=== PATIENT | female | born 1955 | race Hispanic/Latino ===

== ENCOUNTER 2016-10-27 16:54 | Emergency (ER) | payer SELFPAY ==
[2016-10-27 17:50] LABS: Mean Corpuscular HGB Conc 27 % (30-34); Platelet Count 265 K/mm3 (140-440); Red Blood Count 3.18 M/mm3 (3.65-5.03); Red Cell Distribution Width 17.1 % (13.2-15.2); White Blood Count 5.8 K/mm3 (4.5-11.0)
[2016-10-27 17:53] LABS: Hemoglobin 5.4 gm/dl (10.1-14.3); Mean Corpuscular Hemoglobin 17 pg (28-32); Mean Corpuscular Volume 63 fl (79-97)
[2016-10-27 17:57] LABS: Partial Thromboplastin Time 28.6 Sec. (24.2-36.6)
[2016-10-27 18:06] LABS: Alanine Aminotransferase 9 units/L (7-56); Albumin 4.3 g/dL (3.9-5); Albumin/Globulin Ratio 1.7 %; Alkaline Phosphatase 60 units/L (35-129); Anion Gap 22 mmol/L; BUN/Creatinine Ratio 22.72; Blood Urea Nitrogen 25 mg/dL (7-17); Calcium 8.9 mg/dL (8.4-10.2); Carbon Dioxide 21 mmol/L (22-30); Chloride 102.7 mmol/L (98-107); Glucose 109 mg/dL (65-100); Potassium 4.8 mmol/L (3.6-5.0); Sodium 141 mmol/L (137-145); Total Protein 6.9 g/dL (6.3-8.2)
[2016-10-27 18:13] LABS: Bilirubin,Direct < 0.2 mg/dL (0-0.2)
[2016-10-27 18:48] LABS: Basophils % (Manual) 0 % (0.0-1.8); Blastocytes % (Manual) 0 %
[2016-10-27 18:49] LABS: Hypochromasia 3+; Microcytosis 2+; Polychromasia Few
[2016-10-27 18:50] LABS: Diff Status Complete; Elliptocytes 1+; Tear Drop Cells 1+
[2016-10-27] MEDS ORDERED: NACL 0.9% 500 ML 500 ML IV ONE (20:26)
--- NOTE | 2016-10-27 22:22 | Emergency Department Report ---
ED General Adult HPI - General Chief complaint: Medical Clearance Stated complaint: LOW HEMAGLOBIN Time Seen by Provider: 10/27/16 20:12 Source: patient Mode of arrival: Ambulatory Limitations: No Limitations - History of Present Illness Initial comments: Patient is a 61 -year-old female past medical history of anemia and high blood pressure who presents with low hemoglobin. Patient got some routine blood work and her PCP and was told that she needed to calm to the emergency department for medical clearance. Patient denies any fatigue or pain. She denies any bloody stools or melena. She states that she had a colonoscopy earlier on this ear which showed no signs of lower gastrointestinal bleeding. Patient's hemoglobin was 5.5. Severity scale (0 -10): 0 - Related Data Home Medications Medication Instructions Recorded Confirmed Last Taken Pantoprazole [Protonix TAB] 20 mg PO QDAY 10/27/16 10/27/16 Unknown Allergies Allergy/AdvReac Type Severity Reaction Status Date / Time No Known Allergies Allergy Unverified 10/27/16 17:11 ED Review of Systems ROS: Stated complaint: LOW HEMAGLOBIN Other details as noted in HPI Constitutional: denies: chills, fever Eyes: denies: eye pain, eye discharge, vision change ENT: denies: ear pain, throat pain Respiratory: denies: cough, shortness of breath, wheezing Cardiovascular: denies: chest pain, palpitations Endocrine: no symptoms reported Gastrointestinal: denies: abdominal pain, nausea, diarrhea Genitourinary: denies: urgency, dysuria, discharge Musculoskeletal: denies: back pain, joint swelling, arthralgia Skin: other (pale). denies: rash, lesions Neurological: denies: headache, weakness, paresthesias Psychiatric: denies: anxiety, depression Hematological/Lymphatic: denies: easy bleeding, easy bruising ED Past Medical Hx - Past Medical History Previous Medical History?: Yes Hx Hypertension: Yes Additional medical history: childhood anemia - Surgical History Past Surgical History?: Yes Additional Surgical History: 1988 - Social History Smoking Status: Current Some Day Smoker Substance Use Type: None - Medications Home Medications: Home Medications Medication Instructions Recorded Confirmed Last Taken Type Pantoprazole [Protonix TAB] 20 mg PO QDAY 10/27/16 10/27/16 Unknown History ED Physical Exam - General Limitations: No Limitations General appearance: alert, in no apparent distress - Head Head exam: Present: atraumatic, normocephalic - Eye Eye exam: Present: normal appearance - ENT ENT exam: Present: mucous membranes moist - Neck Neck exam: Present: normal inspection - Respiratory Respiratory exam: Present: normal lung sounds bilaterally. Absent: respiratory distress - Cardiovascular Cardiovascular Exam: Present: regular rate, normal rhythm. Absent: systolic murmur, diastolic murmur, rubs, gallop - GI/Abdominal GI/Abdominal exam: Present: soft, normal bowel sounds - Rectal Rectal exam: Present: heme (-) stool, hemorrhoids. Absent: heme (+) stool, black stool, bloody stool - Extremities Exam Extremities exam: Present: normal inspection, full ROM - Back Exam Back exam: Present: normal inspection, full ROM - Neurological Exam Neurological exam: Present: alert, oriented X3, CN II-XII intact - Psychiatric Psychiatric exam: Present: normal affect, normal mood - Skin Skin exam: Present: warm, dry ED Course Vital Signs 10/27/16 10/27/16 10/27/16 17:11 20:58 21:24 Temperature 98.2 F 98.2 F Pulse Rate 120 H 93 H Respiratory 16 13 16 Rate Blood Pressure 165/89 Blood Pressure 138/63 [Left] O2 Sat by Pulse 102 H 100 100 Oximetry 10/27/16 10/27/16 10/27/16 22:00 22:15 22:40 Temperature 98.8 F 98.5 F 98.6 F Pulse Rate 88 86 92 H Respiratory 16 14 14 Rate Blood Pressure 138/65 145/72 141/68 Blood Pressure [Left] O2 Sat by Pulse 99 100 100 Oximetry 10/27/16 10/27/16 10/28/16 22:55 23:25 00:49 Temperature 98.4 F 98.2 F Pulse Rate 93 H 93 H 90 Respiratory 14 14 16 Rate Blood Pressure 141/71 139/83 172/64 Blood Pressure [Left] O2 Sat by Pulse 100 100 98 Oximetry - Reevaluation(s) Reevaluation #1: 10/27/16 22:35 Reevaluated patient patient is currently getting blood she's has no complaints other than being cold. She is on her first unit now will continue to reassess. Reevaluation #2: 10/28/16 00:26 Patient has finished her transfusion of blood will get a repeat CBC. Reevaluation #3: 10/28/16 01:44 Patient is is asymptomatic discussed the patient to follow up with PCP. ED Medical Decision Making - Lab Data Result diagrams: 10/28/16 00:26 10/27/16 17:29 Laboratory Results - last 24 hr 10/27/16 10/27/16 10/27/16 17:29 17:29 17:29 WBC 5.8 RBC 3.18 L Hgb 5.4 L* Hct 20.0 L MCV 63 L MCH 17 L MCHC 27 L RDW 17.1 H Plt Count 265 [place] % (Auto) Secretary Receptionist Eos % (Auto) Secretary Receptionist [place] # Secretary Receptionist Eos # Secretary Receptionist Baso # Secretary Receptionist Add Manual Diff Complete Total Counted 100 Seg Neutrophils % Secretary Receptionist Seg Neuts % (Manual) 74.0 H Band Neutrophils % 0 Lymphocytes % (Manual) 18.0 Reactive Lymphs % (Man) 0 Monocytes % (Manual) 5.0 Eosinophils % (Manual) 3.0 Basophils % (Manual) 0 Metamyelocytes % 0 Myelocytes % 0 Promyelocytes % 0 Blast Cells % 0 Nucleated RBC % Not Reportable Seg Neutrophils # Secretary Receptionist Seg Neutrophils # Man 4.3 Band Neutrophils # 0.0 Lymphocytes # (Manual) 1.0 L Abs React Lymphs (Man) 0.0 Monocytes # (Manual) 0.3 Eosinophils # (Manual) 0.2 Basophils # (Manual) 0.0 Metamyelocytes # 0.0 Myelocytes # 0.0 Promyelocytes # 0.0 Blast Cells # 0.0 WBC Morphology Not Reportable Hypersegmented Neuts Not Reportable Hyposegmented Neuts Not Reportable Hypogranular Neuts Not Reportable Smudge Cells Not Reportable Toxic Granulation Not Reportable Toxic Vacuolation Not Reportable Dohle Bodies Not Reportable Pelger-Huet Anomaly Not Reportable Suzie Rods Not Reportable Platelet Estimate Appears normal Clumped Platelets Not Reportable Plt Clumps, EDTA Not Reportable Large Platelets Not Reportable Giant Platelets Not Reportable Platelet Satelliting Not Reportable Plt Morphology Comment Not Reportable RBC Morphology Not Reportable Dimorphic RBCs Not Reportable Polychromasia Few Hypochromasia 3+ Poikilocytosis Not Reportable Anisocytosis Not Reportable Microcytosis 2+ Macrocytosis Not Reportable Spherocytes Not Reportable Pappenheimer Bodies Not Reportable Sickle Cells Not Reportable Target Cells Not Reportable Tear Drop Cells 1+ Ovalocytes Not Reportable Helmet Cells Not Reportable [place] Bodies Not Reportable [place] Rings Not Reportable Unruly Cells Not Reportable Bite Cells Not Reportable Crenated Cell Not Reportable Elliptocytes 1+ Acanthocytes (Spur) Not Reportable Rouleaux Not Reportable Hemoglobin C Crystals Not Reportable Schistocytes Not Reportable Malaria parasites Not Reportable Oh Bodies Not Reportable Hem Pathologist Commnt No PT 13.7 INR 1.00 APTT 28.6 Sodium 141 Potassium 4.8 Chloride 102.7 Carbon Dioxide 21 L Anion Gap 22 BUN 25 H Creatinine 1.1 Estimated GFR 50 BUN/Creatinine Ratio 22.72 Glucose 109 H Calcium 8.9 Total Bilirubin 0.20 Direct Bilirubin < 0.2 Indirect Bilirubin 0.0 AST 10 ALT 9 Alkaline Phosphatase 60 Total Protein 6.9 Albumin 4.3 Albumin/Globulin Ratio 1.7 Blood Type Antibody Screen JIHAN Antibody Screen Crossmatch 10/27/16 10/28/16 17:36 00:26 WBC 6.5 RBC 4.05 Hgb 8.5 L D Hct 28.8 L D MCV 71 L MCH 21 L MCHC 30 RDW 24.6 H Plt Count 240 [place] % (Auto) Eos % (Auto) [place] # Eos # Baso # Add Manual Diff Total Counted Seg Neutrophils % Seg Neuts % (Manual) Band Neutrophils % Lymphocytes % (Manual) Reactive Lymphs % (Man) Monocytes % (Manual) Eosinophils % (Manual) Basophils % (Manual) Metamyelocytes % Myelocytes % Promyelocytes % Blast Cells % Nucleated RBC % Seg Neutrophils # Seg Neutrophils # Man Band Neutrophils # Lymphocytes # (Manual) Abs React Lymphs (Man) Monocytes # (Manual) Eosinophils # (Manual) Basophils # (Manual) Metamyelocytes # Myelocytes # Promyelocytes # Blast Cells # WBC Morphology Hypersegmented Neuts Hyposegmented Neuts Hypogranular Neuts Smudge Cells Toxic Granulation Toxic Vacuolation Dohle Bodies Pelger-Huet Anomaly Suzie Rods Platelet Estimate Clumped Platelets Plt Clumps, EDTA Large Platelets Giant Platelets Platelet Satelliting Plt Morphology Comment RBC Morphology Dimorphic RBCs Polychromasia Hypochromasia Poikilocytosis Anisocytosis Microcytosis Macrocytosis Spherocytes Pappenheimer Bodies Sickle Cells Target Cells Tear Drop Cells Ovalocytes Helmet Cells Goldman-[place] Bodies [place] Rings [place] Cells Bite Cells Crenated Cell Elliptocytes Acanthocytes (Spur) Rouleaux Hemoglobin C Crystals Schistocytes Malaria parasites Oh Bodies Hem Pathologist Commnt PT INR APTT Sodium Potassium Chloride Carbon Dioxide Anion Gap BUN Creatinine Estimated GFR BUN/Creatinine Ratio Glucose Calcium Total Bilirubin Direct Bilirubin Indirect Bilirubin AST ALT Alkaline Phosphatase Total Protein Albumin Albumin/Globulin Ratio Blood Type O POSITIVE Antibody Screen TNR JIHAN Antibody Screen Negative Crossmatch See Detail - Medical Decision Making Chief medical diagnosis: Anemia Differential diagnosis GI bleed, metabolic abnormality, dehydration, acute kidney injury We'll get CBC, CMP, type and screen, transfuse, rectal exam. Due to patient being asymptomatic but still having life-threatening anemia will have patient monitored. Patient has been monitored for 4 hours no signs of active bleeding patient is not short of breath no chest pain and since patient has no GI bleed she can follow-up with her PCP. Patient no longer has a life-threatening critical value discussed plan with patient and she agrees with discharge. Critical Care Time: Yes Critical care time in (mins) excluding proc time.: 35 Critical care attestation.: If time is entered above; I have spent that time in minutes in the direct care of this critically ill patient, excluding procedure time. Critical Care Time: Time spent evaluating patient and reassessment 30 minutes Time spent going over diagnostic tests 5 minutes Time spent: Overall medical records 0 minutes ED Disposition Clinical Impression: Low hemoglobin Anemia Qualifiers: Anemia type: unspecified type Qualified Code(s): D64.9 - Anemia, unspecified Disposition: DC-01 TO HOME OR SELFCARE Is pt being admited?: No Does the pt Need Aspirin: No Condition: Stable Instructions: Anemia (ED), Iron Rich Diet (ED) Referrals: PRIMARY CARE, [Primary Care Provider] - 3-5 Days Time of Disposition: 01:44
[2016-10-28 00:43] LABS: Mean Corpuscular HGB Conc 30 % (30-34); Mean Corpuscular Volume 71 fl (79-97); Platelet Count 240 K/mm3 (140-440); Red Blood Count 4.05 M/mm3 (3.65-5.03); White Blood Count 6.5 K/mm3 (4.5-11.0)
[2016-10-28 00:58] LABS: Hematocrit 28.8 % (30.3-42.9); Hemoglobin 8.5 gm/dl (10.1-14.3); Mean Corpuscular Hemoglobin 21 pg (28-32); Red Cell Distribution Width 24.6 % (13.2-15.2)
[2016-10-28 01:01] VITALS: BP 172/64
== END 2016-10-28 02:01 | disposition home or self-care (01) ==
LOC: ED 16:54
DX: D64.9 Anemia, unspecified (principal); I10 Essential (primary) hypertension; F17.200 Nicotine dependence, unspecified, uncomplicated
CPT/HCPCS: 36415; 36430; 80053; 80074; 85007; 85025; 85027; 85610; 85730; 86850; 86900; 86901; 86920; 96360; 99291; J7040; P9016

== ENCOUNTER 2020-04-02 13:40 | Emergency (ER) | payer SELFPAY ==
[2020-04-02 13:58] VITALS: BP 178/87
--- NOTE | 2020-04-02 14:07 | Emergency Department Report ---
Blank Doc - Documentation Documentation: 64-year-old female presents with left flank pain. Patient is tachy at 115. This initial assessment/diagnostic orders/clinical plan/treatment(s) is/are subject to change based on patient's health status, clinical progression and re- assessment by fellow clinical providers in the ED. Further treatment and workup at subsequent clinical providers discretion. Patient/guardians urged not to elope from the ED as their condition may be serious if not clinically assessed and managed. Initial orders include: 1- Patient sent to [facility] for further evaluation and treatment 2- labs 3- UA 4- EKG
[2020-04-02 15:01] LABS: Alanine Aminotransferase 6 units/L (7-56); Albumin 4.1 g/dL (3.9-5); BUN/Creatinine Ratio 13; Blood Urea Nitrogen 15 mg/dL (7-17); Calcium 8.5 mg/dL (8.4-10.2); Hemolysis Index 1
[2020-04-02 15:16] LABS: Mean Corpuscular HGB Conc 27 % (30-34); Platelet Count 232 K/mm3 (140-440); Red Cell Distribution Width 18.8 % (13.2-15.2)
[2020-04-02 15:17] LABS: Hematocrit 21.2 % (30.3-42.9); Mean Corpuscular Volume 68 fl (79-97)
[2020-04-02 15:18] LABS: Hemoglobin 5.6 gm/dl (10.1-14.3)
[2020-04-02 15:23] LABS: Bilirubin,Urine NEG (Negative); Blood,Urine NEG (Negative); Color,Urine Yellow (Yellow); Hyaline Casts,Urine 5 /LPF; Mucus,Urine FEW /HPF; Protein,Urine <15 mg/dL mg/dL (Negative); Urobilinogen,Urine < 2.0 mg/dL (<2.0)
[2020-04-02] MEDS ORDERED: ACETAMINOPHEN 325 MG TAB PO ONE (17:58)
--- NOTE | 2020-04-02 18:01 | Emergency Department Report ---
ED Back Pain/Injury HPI - General Chief Complaint: Abdominal Pain Stated Complaint: LOW BACK/KIDNEY PAIN Time Seen by Provider: 04/02/20 14:00 Source: patient, old records reviewed Limitations: No Limitations - History of Present Illness Initial Comments: 64-year-old female with a past medical history of hypertension, peptic ulcer disease diagnosed by CT scan 12 years ago currently on Prilosec, and "childhood anemia" presents to the hospital with complaints of left flank pain x5 days. Pain she describes her is worse with movement, sitting, walking, and palpation. No alleviating factors reported. She denies nausea, vomiting, fever, increased urinary frequency, dysuria, hematuria, melena, hematochezia, or hematemesis. She denies chest pain, shortness of breath, or lightheadedness. Patient takes Goody powders 3-4 times a week for intermittent headaches. As per previous medical record review in 2017 patient had a blood transfusion for anemia with a normal colonoscopy in 2017. She denies known history of iron deficiency anemia does not currently take iron tablet - Related Data Home Medications Medication Instructions Recorded Confirmed Last Taken Pantoprazole [Protonix TAB] 20 mg PO QDAY 10/27/16 10/27/16 Unknown Previous Rx's Medication Instructions Recorded Last Taken Type Docusate Sodium [Colace] 100 mg PO BID PRN #20 capsule 04/02/20 Unknown Rx Ferrous Sulfate [Ferrous Sulfate 324 mg PO DAILY #30 tablet. 04/02/20 Unknown Rx 324 MG] Allergies Allergy/AdvReac Type Severity Reaction Status Date / Time codeine Allergy Nausea Verified 04/02/20 13:55 ED Review of Systems ROS: Stated complaint: LOW BACK/KIDNEY PAIN Other details as noted in HPI Comment: All other systems reviewed and negative ED Past Medical Hx - Past Medical History Hx Hypertension: Yes Additional medical history: childhood anemia - Surgical History Additional Surgical History: 1989 - Social History Smoking Status: Current Some Day Smoker Substance Use Type: None - Medications Home Medications: Home Medications Medication Instructions Recorded Confirmed Last Taken Type Pantoprazole [Protonix TAB] 20 mg PO QDAY 10/27/16 10/27/16 Unknown History Docusate Sodium [Colace] 100 mg PO BID PRN #20 capsule 04/02/20 Unknown Rx Ferrous Sulfate [Ferrous Sulfate 324 mg PO DAILY #30 tablet. 04/02/20 Unknown Rx 324 MG] ED Physical Exam - General Limitations: No Limitations - Other Other exam information: General: No acute distress Head: Atraumatic Eyes: normal appearance ENT: Moist mucous membranes Neck: Normal appearance, no midline tenderness Chest: Clear to auscultation bilaterally CV: Regular rate and rhythm Abdomen: Soft, normal bowel sounds, nontender, nondistended, no rebound or guarding Rectal exam: Refused Back: Normal inspection, left upper flank tenderness Extremity: Normal inspection, full range of motion Neuro: Alert O x 3, no facial asymmetry, speech clear, no gross motor sensory deficit Psych: Appropriate behavior Skin: No rash ED Course Vital Signs 04/02/20 13:57 Temperature 97.4 F L Pulse Rate 114 H Respiratory 20 Rate Blood Pressure 178/87 O2 Sat by Pulse 100 Oximetry ED Medical Decision Making - Lab Data Result diagrams: 04/02/20 14:20 04/02/20 14:20 Lab Results 04/02/20 04/02/20 04/02/20 Range/Units 14:20 14:20 14:54 WBC 6.2 (4.5-11.0) K/mm3 RBC 3.10 L (3.65-5.03) M/mm3 Hgb 5.6 L* (10.1-14.3) gm/dl Hct 21.2 L (30.3-42.9) % MCV 68 L (79-97) fl MCH 18 L (28-32) pg MCHC 27 L (30-34) % RDW 18.8 H (13.2-15.2) % Plt Count 232 (140-440) K/mm3 Sodium 139 (137-145) mmol/L Potassium 4.2 (3.6-5.0) mmol/L Chloride 107.9 H (98-107) mmol/L Carbon Dioxide 20 L (22-30) mmol/L Anion Gap 15 mmol/L BUN 15 (7-17) mg/dL Creatinine 1.2 (0.6-1.2) mg/dL Estimated GFR 45 ml/min BUN/Creatinine Ratio 13 % Glucose 101 H (65-100) mg/dL Calcium 8.5 (8.4-10.2) mg/dL Total Bilirubin < 0.20 (0.1-1.2) mg/dL AST 12 (5-40) units/L ALT 6 L (7-56) units/L Alkaline Phosphatase 90 (35-129) units/L Troponin T < 0.010 (0.00-0.029) ng/mL Total Protein 7.0 (6.3-8.2) g/dL Albumin 4.1 (3.9-5) g/dL Albumin/Globulin Ratio 1.4 % Urine Color Yellow (Yellow) Urine Turbidity Clear (Clear) Urine pH 5.0 (5.0-7.0) Ur Specific [place] 1.015 (1.003-1.030) Urine Protein <15 mg/dl (Negative) mg/dL Urine Glucose (UA) Neg (Negative) mg/dL Urine Ketones Neg (Negative) mg/dL Urine Blood Neg (Negative) Urine Nitrite Neg (Negative) Urine Bilirubin Neg (Negative) Urine Urobilinogen < 2.0 (<2.0) mg/dL Ur Leukocyte Esterase Neg (Negative) Urine WBC (Auto) 2.0 (0.0-6.0) /HPF Urine RBC (Auto) 1.0 (0.0-6.0) /HPF U Epithel Cells (Auto) < 1.0 (0-13.0) /HPF Hyaline Casts 5 /LPF Urine Mucus Few /HPF - EKG Data -: EKG Interpreted by Mi EKG shows normal: sinus rhythm, ST-T waves (lvh ) Rate: tachycardia (108) - Medical Decision Making 64-year-old female history of peptic ulcer disease, hypertension, and anemia presents to the hospital with complaints of nontraumatic left flank pain without associated symptoms. Incidental finding of anemia which patient denies current anemia symptoms but is noted to be tachycardic. Patient states "her heart rate is always fast". MCV is low suggesting iron deficiency component to anemia. Patient is interesting in keeping her ER bill/cost down and therefore has re fused rectal examination to rule out bleed, refused blood transfusion, and refused CT abdomen and pelvis. I informed patient that I cannot rule out GI bleed without rectal exam especially given her history of peptic ulcer disease and anemia requiring transfusion. I explained that she is at risk for significant morbidity and mortality from severe anemia and occult GI bleed. Patient understands still denies treatment. She was advised to discontinue Goody powders and other NSAIDs due to risk of GI bleed. She was advised to continue Prilosec. I will add iron tablets and Colace to help with anemia. Patient encouraged to return to the ER if she develops symptomatic anemia which was discussed Tylenol provided for pain in the ED Critical Care Time: No Critical care attestation.: If time is entered above; I have spent that time in minutes in the direct care of this critically ill patient, excluding procedure time. ED Disposition Clinical Impression: Anemia, Left flank pain Disposition: DC- LEFT AGAINST MED ADVICE Is pt being admited?: No Does the pt Need Aspirin: No Condition: Stable Instructions: Abdominal Pain (ED), Flank Pain, Adult, [id number], Preventing Iron Deficiency Anemia, Adult Additional Instructions: Take the medication as prescribed. Follow-up with your doctor or doctor/clinic provided. Return if symptoms worsen as indicated by your discharge instructions. Please return if you develop lightheadedness, shortness of breath, fatigue, vomit blood, or see blood in your stool as discussed which could appear red or black. Please note that iron tablets may also cause black stool. Please understand that blood transfusion was recommended because your hemoglobin is extremely low. Also I am unable to do a CAT scan at this time for further evaluation of the left leg pain. If your hemoglobin continues to decresse you will be high risk for worsening shortness of breath, lightheadedness passing out, heart attack, and . Please avoid NSAIDs, aspirin, Goody powders, ibuprofen, Motrin, or Aleve because this may contribute to bleeding ulcers. Continue your Prilosec. Only take Tylenol as needed for pain Prescriptions: Docusate Sodium [Colace] 100 mg PO BID PRN #20 capsule PRN Reason: Constipation Ferrous Sulfate [Ferrous Sulfate 324 MG] 324 mg PO DAILY #30 tablet. Referrals: [facility] [Provider Group] - 3-5 Days (Primary care clinic) SHRUTI KAUR MD [Primary Care Provider] - 3-5 Days CHAVO HAYNES MD [Staff Physician] - 3-5 Days (Primary care doctor) EMILY BENOIT MD [Staff Physician] - 3-5 Days (GI doctor) Forms: AMA Form Time of Disposition: 18:17
[2020-04-02 21:05] LABS: Band Neutrophils # (Manual) 0.1 K/mm3; Hypochromasia 2+; Total Cells Counted 100
[2020-04-02 21:09] LABS: Ovalocytes Few; Poikilocytosis Few; Tear Drop Cells Few
[2020-04-02 21:10] LABS: Platelet Estimate Consistent w Auto
== END 2020-04-02 18:32 | disposition left against medical advice (07) ==
LOC: ED 13:40
DX: D64.9 Anemia, unspecified (principal); R10.9 Unspecified abdominal pain; I10 Essential (primary) hypertension; F17.200 Nicotine dependence, unspecified, uncomplicated; Z79.899 Other long term (current) drug therapy; Z88.6 Allergy status to analgesic agent
CPT/HCPCS: 36415; 80053; 81001; 84484; 85007; 85025; 93005; 99283

== ENCOUNTER 2020-07-01 23:12 | Observation (INO) | payer MEDICARE ==
--- NOTE | 2020-07-02 | XRay Report ---
CHEST 1 VIEW 07/01/2020 11:45 PM INDICATION / CLINICAL INFORMATION: dyspnea. COMPARISON: None available. FINDINGS: SUPPORT DEVICES: None. HEART / MEDIASTINUM: No significant abnormality. LUNGS / PLEURA: There is mild basilar interstitial disease which may represent edema or may be chroni c. There is hyperinflation the lungs. No pneumothorax. ADDITIONAL FINDINGS: No significant additional findings. IMPRESSION: 1. There is mild basilar interstitial disease which may represent edema or may be chronic. No focal i nfiltrate is seen. No pneumothorax is seen. 2. There is hyperinflation of the lungs Signer Name: Shola Sparks MD Signed: 07/01/2020 11:55 PM Workstation Name: [id number]
[2020-07-02 00:21] LABS: Basophils % (Auto) 0.9 % (0.0-1.8); Eosinophils # (Auto) 0.1 K/mm3 (0.0-0.4); Eosinophils % (Auto) 2.3 % (0.0-4.3); Hematocrit 42.7 % (30.3-42.9); Hemoglobin 13.5 gm/dl (10.1-14.3); Lymphocytes # (Auto) 1.3 K/mm3 (1.2-5.4); Lymphocytes % (Auto) 24.9 % (13.4-35.0); Mean Corpuscular HGB Conc 32 % (30-34); Mean Corpuscular Volume 102 fl (79-97); Monocytes # (Auto) 0.6 K/mm3 (0.0-0.8); Monocytes % (Auto) 11.6 % (0.0-7.3); Platelet Count 158 K/mm3 (140-440); Red Cell Distribution Width 15.2 % (13.2-15.2)
[2020-07-02 00:29] LABS: Alanine Aminotransferase 26 units/L (7-56); Albumin 4.3 g/dL (3.9-5); BUN/Creatinine Ratio 18; Blood Urea Nitrogen 16 mg/dL (7-17); Calcium 8.5 mg/dL (8.4-10.2); Hemolysis Index 10
[2020-07-02] MEDS ORDERED: FUROSEMIDE 40 MG/4 ML INJ IV ONE (00:42)
[2020-07-02] MEDS ORDERED: cloNIDine 0.2 MG TAB PO ONE (00:42)
--- NOTE | 2020-07-02 00:48 | Emergency Department Report ---
HPI - General Chief Complaint: Dyspnea/Respdistress Time Seen by Provider: 07/02/20 00:34 - HPI HPI: Room 19 The patient is a 65-year-old female present with a chief complaint of shortness of breath. Patient states she developed shortness of breath this afternoon while at rest. Patient states walking quickly worsens the shortness of breath. Patient denied ever having chest pain at any time. Patient denies history of fever. Patient states she has had a dry cough for 1 day. Patient states she has not noticed peripheral edema. Of note the patient states she received her first Covid vaccination yesterday morning. ED Past Medical Hx - Past Medical History Hx Hypertension: Yes Additional medical history: childhood anemia - Surgical History Past Surgical History?: No Additional Surgical History: 1988 - Family History Family history: no significant - Social History Smoking Status: Current Every Day Smoker (1/7 pack/day) Substance Use Type: None (Denies illicit drug use) - Medications Home Medications: Home Medications Medication Instructions Recorded Confirmed Last Taken Type Pantoprazole [Protonix TAB] 20 mg PO QDAY 10/27/16 10/27/16 Unknown History Docusate Sodium [Colace] 100 mg PO BID PRN #20 capsule 04/02/20 Unknown Rx Ferrous Sulfate [Ferrous Sulfate 324 mg PO DAILY #30 tablet.dr 04/02/20 Unknown Rx 324 MG] ED Review of Systems ROS: Stated complaint: SOB Other details as noted in HPI Constitutional: denies: fever Eyes: denies: eye pain ENT: denies: throat pain Respiratory: cough, shortness of breath, SOB with exertion Cardiovascular: denies: chest pain Endocrine: no symptoms reported Gastrointestinal: denies: abdominal pain Genitourinary: denies: dysuria Musculoskeletal: denies: back pain Neurological: denies: headache Physical Exam - Physical Exam Vital Signs: Vital Signs 07/01/20 23:20 Temperature 97.5 F L Pulse Rate 119 H Respiratory 18 Rate Blood Pressure 192/120 O2 Sat by Pulse 99 Oximetry Physical Exam: GENERAL: The patient is well-developed well-nourished female lying on stretcher not appearing to be in acute distress. [] HEENT: Normocephalic. Atraumatic. Extraocular motions are intact. Patient has moist mucous membranes. NECK: Supple. Trachea midline CHEST/LUNGS: Bibasilar crackles. There is no respiratory distress noted. HEART/CARDIOVASCULAR: Regular. There is tachycardia. There is no gallop rub or murmur. ABDOMEN: Abdomen is soft, nontender. Patient has normal bowel sounds. There is no abdominal distention. SKIN: There is no rash. There is 1-2+ bilateral lower extremity pitting edema. There is no diaphoresis. NEURO: The patient is awake, alert, and oriented. The patient is cooperative. The patient has normal speech MUSCULOSKELETAL:There is no evidence of acute injury. ED Course Vital Signs 07/01/20 23:20 Temperature 97.5 F L Pulse Rate 119 H Respiratory 18 Rate Blood Pressure 192/120 O2 Sat by Pulse 99 Oximetry ED Medical Decision Making - Lab Data Result diagrams: 07/01/20 23:30 07/01/20 23:30 Laboratory Tests 07/01/20 07/01/20 07/01/20 23:30 23:30 23:30 WBC 5.2 RBC 4.20 Hgb 13.5 Hct 42.7 MCV 102 H MCH 32 MCHC 32 RDW 15.2 Plt Count 158 Lymph % (Auto) 24.9 [place] % (Auto) 11.6 H Eos % (Auto) 2.3 Baso % (Auto) 0.9 Lymph # (Auto) 1.3 [place] # (Auto) 0.6 Eos # (Auto) 0.1 Baso # (Auto) 0.0 Seg Neutrophils % 60.3 Seg Neutrophils # 3.1 Sodium 142 Potassium 3.8 Chloride 105.4 Carbon Dioxide 26 Anion Gap 14 BUN 16 Creatinine 0.9 Estimated GFR > 60 BUN/Creatinine Ratio 18 Glucose 112 H Calcium 8.5 Total Bilirubin < 0.20 AST 26 ALT 26 Alkaline Phosphatase 201 H Troponin T < 0.010 NT-Pro-B Natriuret Pep 52435 H Total Protein 6.6 Albumin 4.3 Albumin/Globulin Ratio 1.9 - EKG Data -: EKG Interpreted by Me EKG shows normal: sinus rhythm Rate: tachycardia (111 bpm) - EKG Data When compared to previous EKG there are: changes noted Interpretation: nonspecific ST-T wave perri (New T wave inversions inferior late rally when compared to previous EKG dated 04/02/2020), LVH - Radiology Data Radiology results: report reviewed (Chest x-ray), image reviewed (Chest x-ray) interpreted by me: Chest x-ray-no definite focal infiltrates. Hyperinflated lungs. No pneumothorax [facility] [address] [place] [address] XRay Report Signed Patient: TREVA RUIZ MR#: [id number] : 956 Acct:[id number] Age/Sex: 65 / F ADM Date: 07/01/20 Loc: ED Attending Dr: Ordering Physician: LUIGI HUTCHINSON Date of Service: 07/01/20 Procedure(s): XR chest 1V ap Accession Number(s): [id number] cc: LUIGI HUTCHINSON Fluoro Time In Minutes: CHEST 1 VIEW 07/01/2020 11:45 PM INDICATION / CLINICAL INFORMATION: dyspnea. COMPARISON: None available. FINDINGS: SUPPORT DEVICES: None. HEART / MEDIASTINUM: No significant abnormality. LUNGS / PLEURA: There is mild basilar interstitial disease which may represent edema or may be chronic. There is hyperinflation the lungs. No pneumothorax. ADDITIONAL FINDINGS: No significant additional findings. IMPRESSION: 1. There is mild basilar interstitial disease w hich may represent edema or may be chronic. No focal infiltrate is seen. No pneumothorax is seen. 2. There is hyperinflation of the lungs Signer Name: Shola Sparks MD Signed: 07/01/2020 11:55 PM Workstation Name: [id number] Transcribed By: SS Dictated By: Shola Sparks MD Electronically Authent icated By: Shola Sparks MD Signed Date/Time: 07/01/202354 DD/ 53 TD/TT: Print Cancel - Differential Diagnosis New onset CHF, COPD, pneumonia, COVID-19, hypertensive urgency Critical care attestation.: If time is entered above; I have spent that time in minutes in the direct care of this critically ill patient, excluding procedure time. ED Disposition Clinical Impression: New onset of congestive heart failure, Shortness of breath, Uncontrolled hypertension Disposition: OP ADMIT IP TO THIS HOSP Is pt being admited?: Yes Does the pt Need Aspirin: Yes Condition: Fair Instructions: Hypertension (ED) Referrals: PRIMARY CARE, [Primary Care Provider] - 3-5 Days Time of Disposition: 00:51 (Hospitalist notified (Dr Coe))
[2020-07-02] MEDS ORDERED: ASPIRIN 325 MG TAB PO ONE (00:52)
[2020-07-02] MEDS ORDERED: NITROGLYCERIN 0.4 MG TAB SUBL SL PRN (01:13)
[2020-07-02] MEDS ORDERED: MORPHINE 2 MG/1 ML INJ IV PRN (01:13)
[2020-07-02] MEDS ORDERED: hydrALAZINE 20 MG/1 ML INJ IV PRN (01:15)
[2020-07-02] MEDS ORDERED: DOCUSATE SODIUM 100 MG CAP PO PRN (01:15)
--- NOTE | 2020-07-02 01:20 | History and Physical Report ---
History of Present Illness Date of examination: 07/02/20 Date of admission: 07/02/20 Chief complaint: Shortness of breath leg swelling History of present illness: 65-year-old female with past medical history of hypertension and anemia was brought to the hospital because patient developed shortness of breath this afternoon while at rest. Patient states walking quickly worsens the shortness of breath. Patient denied ever having chest pain at any time. Patient denies history of fever. Patient states she has had a dry cough for 1 day. Patient also complained of leg swelling. patient states she received her first Covid vaccination yesterday morning. In the emergency room patient is found to [place] [address] troponin 0 0.010 Past History Past Medical History: anemia, hypertension Medications and Allergies Allergies Allergy/AdvReac Type Severity Reaction Status Date / Time codeine Allergy Nausea Verified 07/01/20 23:22 Home Medications Medication Instructions Recorded Confirmed Last Taken Type Pantoprazole [Protonix TAB] 20 mg PO QDAY 10/27/16 10/27/16 Unknown History Docusate Sodium [Colace] 100 mg PO BID PRN #20 capsule 04/02/20 Unknown Rx Ferrous Sulfate [Ferrous Sulfate 324 mg PO DAILY #30 tablet. 04/02/20 Unknown Rx 324 MG] Review of Systems Cardiovascular: orthopnea, edema, shortness of breath, dyspnea on exertion Respiratory: shortness of breath Exam - Constitutional Vitals: Temp Pulse Resp BP Pulse Ox 97.5 F L 112 H 18 203/112 99 07/01/20 23:20 07/02/20 00:53 07/01/20 23:20 07/02/20 00:53 07/01/20 23:20 General appearance: Present: no acute distress, well-nourished - EENT Eyes: Present: PERRL ENT: hearing intact, clear oral mucosa - Neck Neck: Present: supple, normal ROM - Respiratory Respiratory effort: normal Respiratory: bilateral: rales - Cardiovascular Heart Sounds: Present: S1 & S2. Absent: rub, click - Extremities Extremities: pulses symmetrical Extremity abnormal: edema Peripheral Pulses: within normal limits - Abdominal General gastrointestinal: Present: soft, non-tender, non-distended, normal bowel sounds Female genitourinary: Present: normal - Integumentary Integumentary: Present: clear, warm, dry - Musculoskeletal Musculoskeletal: gait normal, strength equal bilaterally - Psychiatric Psychiatric: appropriate mood/affect, intact judgment & insight - Neurologic Neurologic: CNII-XII intact, moves all extremities HEART Score - HEART Score Troponin: Troponin T < 0.010 ng/mL (0.00-0.029) 07/01/20 23:30 Results - Labs CBC & Chem 7: 07/01/20 23:30 07/01/20 23:30 Labs: Laboratory Last Values WBC 5.2 K/mm3 (4.5-11.0) 07/01/20 23:30 RBC 4.20 M/mm3 (3.65-5.03) 07/01/20 23:30 Hgb 13.5 gm/dl (10.1-14.3) 07/01/20 23:30 Hct 42.7 % (30.3-42.9) 07/01/20 23:30 MCV 102 fl (79-97) H 07/01/20 23:30 MCH 32 pg (28-32) 07/01/20 23:30 MCHC 32 % (30-34) 07/01/20 23:30 RDW 15.2 % (13.2-15.2) 07/01/20 23:30 Plt Count 158 K/mm3 (140-440) 07/01/20 23:30 Lymph % (Auto) 24.9 % (13.4-35.0) 07/01/20 23:30 [place] % (Auto) 11.6 % (0.0-7.3) H 07/01/20 23:30 Eos % (Auto) 2.3 % (0.0-4.3) 07/01/20 23:30 Baso % (Auto) 0.9 % (0.0-1.8) 07/01/20 23:30 Lymph # (Auto) 1.3 K/mm3 (1.2-5.4) 07/01/20 23:30 [place] # (Auto) 0.6 K/mm3 (0.0-0.8) 07/01/20 23:30 Eos # (Auto) 0.1 K/mm3 (0.0-0.4) 07/01/20 23:30 Baso # (Auto) 0.0 K/mm3 (0.0-0.1) 07/01/20 23:30 Seg Neutrophils % 60.3 % (40.0-70.0) 07/01/20 23:30 Seg Neutrophils # 3.1 K/mm3 (1.8-7.7) 07/01/20 23:30 Sodium 142 mmol/L (137-145) 07/01/20 23:30 Potassium 3.8 mmol/L (3.6-5.0) 07/01/20 23:30 Chloride 105.4 mmol/L (98-107) 07/01/20 23:30 Carbon Dioxide 26 mmol/L (22-30) 07/01/20 23:30 Anion Gap 14 mmol/L 07/01/20 23:30 BUN 16 mg/dL (7-17) 07/01/20 23:30 Creatinine 0.9 mg/dL (0.6-1.2) 07/01/20 23:30 Estimated GFR > 60 ml/min 07/01/20 23:30 BUN/Creatinine Ratio 18 % 07/01/20 23:30 Glucose 112 mg/dL (65-100) H 07/01/20 23:30 Calcium 8.5 mg/dL (8.4-10.2) 07/01/20 23:30 Total Bilirubin < 0.20 mg/dL (0.1-1.2) 07/01/20 23:30 AST 26 units/L (5-40) 07/01/20 23:30 ALT 26 units/L (7-56) 07/01/20 23:30 Alkaline Phosphatase 201 units/L (35-129) H 07/01/20 23:30 Troponin T < 0.010 ng/mL (0.00-0.029) 07/01/20 23:30 NT-Pro-B Natriuret Pep 58479 pg/mL (0-900) H 07/01/20 23:30 Total Protein 6.6 g/dL (6.3-8.2) 07/01/20 23:30 Albumin 4.3 g/dL (3.9-5) 07/01/20 23:30 Albumin/Globulin Ratio 1.9 % 07/01/20 23:30 - Imaging and Cardiology Chest x-ray: image reviewed Assessment and Plan VTE prophylaxis?: Chemical Plan of care discussed with patient/family: Yes - Patient Problems (1) New onset of congestive heart failure Current Visit: Yes Status: Acute Plan to address problem: Admit the patient to the medical telemetry. Put the patient on CHF pathway. DuoNeb by nebulizer every 4 hours as needed. Lasix 40 mils IV daily. We will put the patient on fluid restriction. We also do a echocardiogram. We will do daily weight and maintain intake and output. If needed will consult cardiology (2) Hypertensive urgency Current Visit: Yes Status: Acute Plan to address problem: We will put the patient on lisinopril 5 mg p.o. daily hydralazine 10 mg IV every 6 hours as needed. Patient already get labetalol 20 mg IV x1 dose. Will monitor the blood pressure closely (3) Shortness of breath Current Visit: Yes Status: Acute Plan to address problem: DuoNeb by nebulizer every 4 hours as needed. Lasix 40 mils IV daily. We will put the patient on fluid restriction. We also do a echocardiogram. We will do daily weight and maintain intake and output. If needed will consult cardiology (4) DVT prophylaxis Current Visit: Yes Status: Acute Plan to address problem: Heparin 5000 units subcu every 8 hours for DVT prophylaxis and Protonix 40 mg p.o. daily for GI prophylaxis. Patient is a full code
[2020-07-02 03:18] VITALS: BP 136/88
[2020-07-02] MEDS ORDERED: HEPARIN 5,000 UNIT/1 ML VIAL SUB-Q SCH (06:00)
[2020-07-02] MEDS ORDERED: PANTOPRAZOLE 40 MG TAB PO SCH (07:30)
[2020-07-02] MEDS ORDERED: LISINOPRIL 5 MG TAB PO SCH (10:00)
[2020-07-02] MEDS ORDERED: FERROUS SULFATE 325 MG TAB PO SCH (10:00)
[2020-07-02] MEDS ORDERED: FUROSEMIDE 40 MG/4 ML INJ IV SCH (10:00)
--- NOTE | 2020-07-03 11:23 | Electrocardiograph Report ---
[facility] Test Date: 2020-07-01 Test Time: 23:27:47 Pat Name: TREVA RUIZ Department: Room: [place] [address] Gender: F [employer]: MAIN : 1955 Requested By: ARACELY PADILLA Order Number: [id number] Reading MD: Albert Smith Measurements Intervals [place] Rate: 111 P: 65 [place]: 161 QRS: 41 QRSD: 82 T: 201 QT: 361 QTc: 491 Interpretive Statements Sinus tachycardia Probable left atrial enlargement LVH with secondary repolarization abnormality No previous ECG available for comparison Electronically Signed On 07-03-2020 11:23:24 EDT by Albert Smith
== END 2020-07-02 03:55 | disposition left against medical advice (07) ==
LOC: ED 23:12 → 3A 07-02 00:56
PROVIDERS: ADMIT Hospitalist; ATTEND Hospitalist
DX: I16.0 Hypertensive urgency (principal); I11.0 Hypertensive heart disease with heart failure; I50.9 Heart failure, unspecified; R06.02 Shortness of breath; D64.9 Anemia, unspecified; F17.210 Nicotine dependence, cigarettes, uncomplicated; Z98.891 History of uterine scar from previous surgery
CPT/HCPCS: 36415; 71045; 80053; 83880; 84484; 85025; 93005; 96374; 96375; 99285; G0378; J1940